=== PATIENT | female | born 1990 | race Caucasian/White ===

== ENCOUNTER 2024-04-04 05:07 | Day surgery (SDC) | payer OTHER ==
[2024-03-30 13:47] LABS: HEMATOCRIT 38.4 % (36.0-45.00); HEMOGLOBIN 12.8 g/dL (12.0-15.00); MEAN CELL VOLUME 81.4 fL (80.00-100.00); MEAN CORPUSCULAR HEMOGLOBIN 27.1 pg (27.00-32.0); MEAN CORPUSCULAR HGB CONC 33.3 g/dl (32.0-36.0); PLATELET COUNT 348 K/uL (150-450); RED BLOOD COUNT 4.72 M/uL (4.00-6.00); RED CELL DISTRIBUTION WIDTH 13.8 % (11.5-14.5)
[2024-03-30 13:48] LABS: PH,URINE 5.5 (5.0-8.0); URINE APPEARANCE Clear; URINE BILIRRUBIN Negative (NEGATIVE); URINE BLOOD Negative; URINE COLOR Yellow; URINE GLUCOSE Negative (NEGATIVE); URINE LEUKOCYTE Negative; URINE NITRATE Negative; URINE PROTEIN Negative (NEGATIVE); URINE UROBILINOGEN 0.2 E.U./dl
[2024-03-30 13:52] LABS: URINE BACTERIA 521.5 uL (0.0-1933); URINE WBC 2.9 uL (0.0-23.2)
[2024-03-30 14:01] LABS: URINE RBC 1.3 uL (0.0-20.8)
[2024-03-30 14:07] LABS: INR 1.03; PROTHROMBIN TIME 10.8 SECONDS (9.0-11.5)
[2024-03-30 14:12] LABS: BILIRUBIN TOTAL 0.88 mg/dL (0.3-1.2); CALCIUM 9.2 mg/dL (8.5-10.1); CREATININE SERUM 0.7 mg/dL (0.55-1.02); GFR 95.79; POTASSIUM 4.49 mEq/L (3.5-5.1)
[~2024-04-04 05:07] MED LIST: MOTRIN IB200 MG PO; Mylicon 125MG PO; PRENACARE TABL1 EACH; PROGESTERONE100 M1 PO; SENOKOT TAB1 TAB PO
[2024-04-04] MEDS ORDERED: ONDANSETRON HCL 2 MG/ML VIAL IV ONE (11:15)
== END 2024-04-04 14:50 | disposition home or self-care (01) ==
LOC: CIR.AMB 05:07
PROVIDERS: ATTEND Obstetrics & Gynecology
DX: N83.8 Other noninflammatory disorders of ovary, fallopian tube and broad ligament (principal); N70.91 Salpingitis, unspecified; R10.2 Pelvic and perineal pain